=== PATIENT | male | born 1995 | race Caucasian/White ===

== ENCOUNTER 2017-06-17 03:04 | Emergency (ER) | payer BC ==
[2017-06-17 03:13] VITALS: TEMP 36.3
[2017-06-17 03:14] VITALS: O2SAT 96
[2017-06-17 04:04] LABS: BLOOD UREA NITROGEN 15 mg/dl (7-18); BUN/CREATININE RATIO 14.6 (10-20); CALCIUM 8.9 mg/dl (8.5-10.1); CARBON DIOXIDE 27 mmol/L (21-32); CHLORIDE 108 mmol/L (98-107); GLUCOSE 112 mg/dl (70-99); POTASSIUM 3.4 mmol/L (3.5-5.1); SODIUM 143 mmol/L (136-145)
[2017-06-17] MEDS ORDERED: POTASSIUM CHLORIDE 10 MEQ TABCR PO STA (05:47)
--- NOTE | 2017-06-17 05:51 | EMERGENCY ROOM VISIT NOTE ---
History First contact with patient: 03:05 Chief Complaint: ALCOHOL OVERDOSE Stated Complaint: ETOH Nursing Triage Summary: Found sitting and slouched over by EMS on a sidewalk, in and out of consciousness. History of Present Illness The patient is a 22 year old male who presents to the Emergency Room with complaints of alcohol intoxication was found passed out [place]. Patient has abrasions noted to left-sided face. Patient does not know how he sustained these and is highly intoxicated. Patient denies chest pain, dyspnea, abdominal pain, drug use. Review of Systems See HPI for pertinent positives & negatives. A total of 10 systems reviewed and were otherwise negative. Past Medical/Surgical History None Family History Patient reports no known family medical history. Social History Smoking Status: Never Smoker Housing Status: lives with roommate Occupation Status: student Current/Historical Medications Unable to Obtain Active Prescriptions or Reported Meds Physical Exam Vital Signs Date Time Temp Pulse Resp B/P (MAP) Pulse Ox O2 Delivery O2 Flow Rate FiO2 06/17/17 05:37 68 19 97 06/17/17 05:31 116/65 06/17/17 05:22 68 18 98 06/17/17 05:07 74 18 98 06/17/17 05:01 117/58 06/17/17 04:52 72 15 98 06/17/17 04:47 78 21 95 06/17/17 04:32 75 20 99 06/17/17 04:31 111/58 06/17/17 04:17 75 20 98 06/17/17 04:12 119/56 06/17/17 03:49 65 16 97 06/17/17 03:34 64 18 97 06/17/17 03:31 110/47 06/17/17 03:24 61 06/17/17 03:21 107/49 06/17/17 03:19 60 19 96 Nasal Cannula 4.0 06/17/17 03:14 96 Nasal Cannula 4.0 06/17/17 03:13 36.3 67 18 102/55 88 Room Air 06/17/17 03:12 102/55 Physical Exam PHYSICAL EXAM: VITALS: Vitals are noted on the nurse's note and reviewed by myself. Vital signs stable. GENERAL: Intoxicated male, in no acute distress, nondiaphoretic, well-developed well-nourished. The patient is visibly intoxicated. SKIN: Superficial abrasions to left sided face The rest of the skin was without obvious lacerations, abrasions, or rashes. There is no tenting of the skin. Capillary reflex less than 2 seconds. HEENT: Normocephalic, atraumatic. PERRLA. EOMI. Conjunctiva with mild injection without icterus. Tympanic membranes without erythema or effusion bilaterally no hemotympanum. External auditory canals are clear. Nares patent bilaterally. No epistaxis. Oropharynx without erythema or exudate. Uvula midline. Oral mucosal moist. No lymphadenopathy. Neck is supple without cervical spine tenderness. HEART: Regular rate and rhythm without murmurs gallops or rubs. Peripheral pulses 2+. LUNGS: Clear to auscultation bilaterally without wheezes, rales or rhonchi. ABDOMEN: Positive bowel sounds x 4. Normal tympanic percussion. Soft, nontender, without masses or organomegaly. MUSCULOSKELETAL: Gross motor function of the upper and lower extremities intact. The patient has a staggering gait. NEUROLOGIC: The patient is visibly intoxicated. Once they were more sober they were alert and oriented to person place and time. Medical Decision & Procedures Laboratory Results 06/17/17 03:33 Test 06/17/17 03:33 Anion Gap 8.0 mmol/L (3-11) Estimated GFR () 125.0 Estimated GFR (Non- 107.9 BUN/Creatinine Ratio 14.6 (10-20) Calcium Level 8.9 mg/dl (8.5-10.1) Ethyl Alcohol mg/dL 254.0 mg/dl (0-3) ED Course Prior records/ancillary studies reviewed. Triage Nursing notes reviewed. Additional history obtained from EMS. The patient's history was concerning for altered mental status and a possible alcohol overdose. Differential diagnosis: Etiologies such as alcohol intoxication, toxicologic, infection, hypoglycemia, electrolyte abnormalities, cardiac sources, intracerebral event, neurologic, as well as others were entertained. Physical examination: As above. The patient is clinically intoxicated. Facial abrasions noted. ER treatment provided: Monitoring Aspiration precautions The patient was frequently reassessed. Diagnostic interpretation by me: Cardiac monitoring did not reveal any evidence of dysrhythmia. The labs revealed hypokalemia. The patient's blood alcohol level was 254 mg/dL. Imaging studies: Negative head CT per radiology The patient's history was reviewed once they were more coherent and their intoxication cleared. The patient states they have been in good health recently and had no medical complaints. The patient admitted to consuming alcohol. No additional concerning findings were noted. The patient complained of no symptoms to suggest assault. This appears to be consistent with an isolated overdose of alcohol. Patient is unsure how he sustained a facial abrasions. These are cleansed by nursing. As he was highly intoxicated imaging was ordered and this was negative. By the evaluation outlined above emergent etiologies such as trauma, infection, hypoglycemia, electrolyte abnormalities, cardiac sources, intracerebral event, neurologic,as well as others were deemed relatively unlikely. The patient was informed about the findings as listed above. The patient was counseled on the dangers of excessive alcohol use. I gave my usual and customary discussion regarding this issue. All questions were answered and the patient was pleased with the treatment. Return instructions were outlined and the patient was discharged in stable condition once their mental status improved and a safe destination was confirmed. Outpatient prescription management: None Referral: The patient was referred back to their primary care physician for follow-up in 2 to 3 days for a recheck of their current condition. Medical Decision As above Impression Primary Impression: Alcohol use with intoxication Additional Impressions: Hypokalemia Facial abrasion Departure Information Dispostion Home / Self-Care Condition GOOD Prescriptions Unable to Obtain Active Prescriptions or Reported Meds Referrals No Doctor, Assigned (PCP) Patient Instructions My [facility] Additional Instructions Antibiotic ointment and bandage to the areas until healed. Follow up with family doctor or return for any signs of infection (increasing redness, swelling , drainage, or fever). Keep covered when in sun until fully healed then SPF 50 or higher until scar healed. Keep well-hydrated. Tylenol every 6 hours as needed for pain (Maximum 3000 mg Tylenol in 24 hr period). Follow up with family doctor and/or health services as needed. No driving for the next 24 hours. Recommend no alcohol for the next 48 hours and avoid binge drinking in the future. Return to ER sooner for chest pain, abdominal pain, worsening signs or symptoms or as needed. Problem Qualifiers
--- NOTE | 2017-06-17 07:24 | DIAGNOSTIC IMAGING REPORT ---
CT HEAD WITHOUT CONTRAST (CT) CLINICAL HISTORY: Head trauma. Patient unconscious. LEFT-SIDED ABRASIONS. COMPARISON STUDY: No previous studies for comparison. TECHNIQUE: Axial CT of the brain is performed from the vertex to the skull base. IV contrast was not administered for this examination. A dose lowering technique was utilized adhering to the principles of ALARA. CT DOSE: 614.27 mGy.cm FINDINGS: No intra or extra-axial mass lesions are visualized. There is no CT evidence of acute cortical infarction. There is no evidence of midline shift. There is no acute hemorrhage. No calvarial fractures are visualized. There is no evidence of pathologic ventricular dilatation. There is no evidence of acute sinusitis IMPRESSION: Normal noncontrast head CT. Electronically signed by: Pankaj Tran M.D. 06/17/2017 7:22 AM Dictated Date/Time: 06/17/2017 7:21 AM
[2017-06-17] MEDS ORDERED: POTASSIUM CHLORIDE 10 MEQ TABCR ONE (11:29)
[2017-06-17 12:23] VITALS: BP 112/63; PULSE 65; O2SAT 97
== END 2017-06-17 12:20 | disposition home or self-care (01) ==
LOC: EDBD 03:04 → C.EDC 03:05
DX: F10.920 Alcohol use, unspecified with intoxication, uncomplicated (principal); E87.6 Hypokalemia; Y90.8 Blood alcohol level of 240 mg/100 ml or more; S00.81XA Abrasion of other part of head, initial encounter; X58.XXXA Exposure to other specified factors, initial encounter

== ENCOUNTER 2018-01-19 02:29 | Emergency (ER) | payer BC ==
[~2018-01-19] VITALS: Ht 182.9 cm; Wt 108.0 kg
[2018-01-19 02:28] VITALS: TEMP 36.9; Ht 182.9 cm; Wt 108.0 kg
[2018-01-19 03:03] LABS: EOS % 0.8 %; EOS ABS # 0.06 K/uL (0-0.5); HEMATOCRIT 42.1 % (42-52); HEMOGLOBIN 14.2 g/dL (14.0-18.0); IG# 0.04 K/uL (0.00-0.02); LYMPH % 30.2 %; LYMPH ABS # 2.31 K/uL (1.2-3.4); MEAN CELL VOLUME 92.5 fL (80-100); MEAN CORPUSCULAR HEMOGLOBIN 31.2 pg (25-34); MEAN CORPUSCULAR HGB CONC 33.7 g/dl (32-36); MEAN PLATELET VOLUME 9.9 fL (7.4-10.4); MONO % 4.4 %; MONO ABS # 0.34 K/uL (0.11-0.59); NEUT % 64.1 %; NEUT ABS # 4.91 K/uL (1.4-6.5); PLATELET COUNT 229 K/uL (130-400); RED CELL DISTRIBUTION WIDTH CV 12.1 % (11.5-14.5); RED CELL DISTRIBUTION WIDTH SD 40.8 fL (36.4-46.3); WHITE BLOOD COUNT 7.66 K/uL (4.8-10.8)
[2018-01-19 03:21] LABS: ALBUMIN 3.6 gm/dl (3.4-5.0); CALCIUM 8.4 mg/dl (8.5-10.1); CREATININE 0.98 mg/dl (0.60-1.40); POTASSIUM 2.9 mmol/L (3.5-5.1)
--- NOTE | 2018-01-19 03:29 | EMERGENCY ROOM VISIT NOTE ---
History Report prepared by Rupesh: Keira Prakash Under the Supervision of: Dr. Melissa Fritz D.O. First contact with patient: 02:34 Chief Complaint: ALCOHOL OVERDOSE Stated Complaint: ALCOHOL OVERDOSE Nursing Triage Summary: Patient presents BLS with police for evaluation of alcohol overdose. Patient was found on campus, pants at ankles and stumbling. No obvious s/s of trauma noted. 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 Per nursing staff, the patient was found on campus with his pants around his ankles. They report the patient has an abrasion to the right shoulder. HPI is limited secondary to alcohol intoxication. Source of History: patient History Limited By: intoxication (alcohol ) Onset: ENTERTAINMENT REPORTER Position: other (general) Quality: other (alcohol intoxication) Timing: other (persistent) Note: Notes abrasion to right shoulder. Review of Systems ROS is limited secondary to alcohol intoxication. Family History Patient reports no known family medical history. Social History Smoking Status: Unknown if Ever Smoked Alcohol Use: heavy Marital Status: single Housing Status: lives with roommate Occupation Status: student Current/Historical Medications Unable to Obtain Active Prescriptions or Reported Meds Physical Exam Vital Signs Date Time Temp Pulse Resp B/P (MAP) Pulse Ox O2 Delivery O2 Flow Rate FiO2 01/19/18 09:04 81 14 137/86 98 01/19/18 08:30 85 14 112/63 98 Room Air 01/19/18 07:26 90/61 01/19/18 07:00 62 12 95 Room Air 01/19/18 06:14 67 01/19/18 05:40 78 16 100/55 96 Nasal Cannula 2.0 01/19/18 04:20 59 16 107/55 98 Nasal Cannula 2.0 01/19/18 02:32 75 01/19/18 02:28 36.9 74 15 143/72 96 Room Air Physical Exam GENERAL: Somnolent, well appearing, well nourished, no distress, non-toxic. Smells of ETOH, was initially conversational to nurse. EYE EXAM: normal conjunctiva, PERRL and EOM's grossly intact OROPHARYNX: no exudate, no erythema, lips, buccal mucosa, and tongue normal and mucous membranes are moist NECK: supple, no nuchal rigidity, no adenopathy, non-tender LUNGS: Clear to auscultation. Normal chest wall mechanics HEART: no murmurs, S1 normal and S2 normal ABDOMEN: abdomen soft, non-tender, normo-active bowel sounds, no masses, no rebound or guarding. BACK: Back is symmetrical on inspection and there is no deformity, no midline tenderness, no CVA tenderness. SKIN: no rashes and no bruising UPPER EXTREMITIES: Small abrasion to the right posterior shoulder. LOWER EXTREMITIES: No pitting edema. NEURO EXAM: Somnolent, moans to pain. Medical Decision & Procedures ER Provider Diagnostic Interpretation: Radiology results have been interpreted by and reviewed by me. CHEST XR: Single view prone: Questionable cardiomegaly. No effusions. No pneumothorax. No rib fractures. Laboratory Results 01/19/18 02:45 Red Blood Count 4.55, Mean Corpuscular Volume 92.5, Mean Corpuscular Hemoglobin 31.2, Mean Corpuscular Hemoglobin Concent 33.7, Mean Platelet Volume 9.9, Neutrophils (%) (Auto) 64.1, Lymphocytes (%) (Auto) 30.2, Monocytes (%) (Auto) 4.4, Eosinophils (%) (Auto) 0.8, Basophils (%) (Auto) 0.0, Neutrophils # (Auto) 4.91, Lymphocytes # (Auto) 2.31, Monocytes # (Auto) 0.34, Eosinophils # (Auto) 0.06, Basophils # (Auto) 0.00 01/19/18 02:45 Test 01/19/18 02:45 White Blood Count 7.66 K/uL (4.8-10.8) Red Blood Count 4.55 M/uL (4.7-6.1) Hemoglobin 14.2 g/dL (14.0-18.0) Hematocrit 42.1 % (42-52) Mean Corpuscular Volume 92.5 fL (80-100) Mean Corpuscular Hemoglobin 31.2 pg (25-34) Mean Corpuscular Hemoglobin Concent 33.7 g/dl (32-36) Platelet Count 229 K/uL (130-400) Mean Platelet Volume 9.9 fL (7.4-10.4) Neutrophils (%) (Auto) 64.1 % Lymphocytes (%) (Auto) 30.2 % Monocytes (%) (Auto) 4.4 % Eosinophils (%) (Auto) 0.8 % Basophils (%) (Auto) 0.0 % Neutrophils # (Auto) 4.91 K/uL (1.4-6.5) Lymphocytes # (Auto) 2.31 K/uL (1.2-3.4) Monocytes # (Auto) 0.34 K/uL (0.11-0.59) Eosinophils # (Auto) 0.06 K/uL (0-0.5) Basophils # (Auto) 0.00 K/uL (0-0.2) RDW Standard Deviation 40.8 fL (36.4-46.3) RDW Coefficient of Variation 12.1 % (11.5-14.5) Immature Granulocyte % (Auto) 0.5 % Immature Granulocyte # (Auto) 0.04 K/uL (0.00-0.02) Anion Gap 7.0 mmol/L (3-11) Est Creatinine Clear Calc Drug Dose 152.7 ml/min Estimated GFR () 128.1 Estimated GFR (Non- 110.5 BUN/Creatinine Ratio 14.6 (10-20) Calcium Level 8.4 mg/dl (8.5-10.1) Total Bilirubin 0.4 mg/dl (0.2-1) Aspartate Amino Transf (AST/SGOT) 21 U/L (15-37) Alanine Aminotransferase (ALT/SGPT) 34 U/L (12-78) Alkaline Phosphatase 52 U/L (45-117) Total Protein 7.0 gm/dl (6.4-8.2) Albumin 3.6 gm/dl (3.4-5.0) Globulin 3.4 gm/dl (2.5-4.0) Albumin/Globulin Ratio 1.1 (0.9-2) Ethyl Alcohol mg/dL 271.0 mg/dl (0-3) Laboratory results per my review. ED Course 0240: The patient was evaluated in room B4A. A complete history and physical exam was performed. 0650: I reassessed the patient at this time. He is resting comfortably. 0845: Patient now awake, answering all questions, denies being intoxicated last night. States he was working for [employer] to his residence in [facility] when he was stopped abruptly for no apparent reason. Patient denies any pain or injury at this time. States he felt steady getting up and walking to the bathroom. Medical Decision Prior records/ancillary studies reviewed. Triage Nursing notes reviewed. The patient's history was concerning for altered mental status and a possible alcohol overdose. Differential diagnosis: Etiologies such as alcohol intoxication, toxicologic, infection, hypoglycemia, electrolyte abnormalities, cardiac sources, intracerebral event, neurologic, as well as others were entertained. Patient well-appearing here upon obtaining sobriety, denied any physical complaints. I have a low suspicion for occult traumatic injury. Patient with isolated superficial abrasion noted to the right posterior shoulder. Patient ambulate here with a steady gait, was tolerating sips p.o. bedside, requested to leave. Discussed with patient appropriate use of alcohol, waiting until he is legally eligible to do so, and risks associated with injury sustained while intoxicated. Discussed with patient symptoms to watch and return for, he verbalized understanding was agreeable with plan. Medication Reconcilliation Current Medication List: was personally reviewed by me Blood Pressure Screening Patient's blood pressure: Normal blood pressure Impression Primary Impression: Alcohol intoxication Scribe Attestation The scribe's documentation has been prepared under my direction and personally reviewed by me in its entirety. I confirm that the note above accurately reflects all work, treatment, procedures, and medical decision making performed by me. Departure Information Dispostion Home / Self-Care Prescriptions Unable to Obtain Active Prescriptions or Reported Meds Referrals [facility] (PCP) Forms HOME CARE DOCUMENTATION FORM, IMPORTANT VISIT INFORMATION Patient Instructions My [facility] Additional Instructions Please do not drink alcohol until you are 21. When you do drink, please do so responsibly and in a safe location. Do not drink and drive. If you have any new or concerning symptoms, please return to the emergency room. Please drink clear liquids, primarily water, to stay well hydrated. Problem Qualifiers Primary Impression: Alcohol intoxication Complication of substance-induced condition: uncomplicated Qualified Codes: F10.920 - Alcohol use, unspecified with intoxication, uncomplicated
--- NOTE | 2018-01-19 07:42 | DIAGNOSTIC IMAGING REPORT ---
CHEST ONE VIEW PORTABLE HISTORY: Trauma. COMPARISON: None. FINDINGS: No pneumothorax. No pleural effusions. There is perihilar interstitial vascular thickening. No focal lung consolidations to suggest pneumonia. The cardiac silhouette is mildly enlarged. IMPRESSION: Perihilar and interstitial vascular thickening as well as enlargement cardiac silhouette. This is likely due to the prone technique. Otherwise, no acute process within the chest. Electronically signed by: Malcolm Smalls M.D. 01/19/2018 7:41 AM Dictated Date/Time: 01/19/2018 7:19 AM
[2018-01-19] MEDS ORDERED: POTASSIUM CHLORIDE 10 MEQ TABCR PO STA (09:00)
[2018-01-19 09:04] VITALS: BP 137/86; PULSE 81; O2SAT 98
== END 2018-01-19 09:05 | disposition home or self-care (01) ==
LOC: EDBD 02:29 → C.EDB 02:31
DX: F10.920 Alcohol use, unspecified with intoxication, uncomplicated (principal)